=== PATIENT | female | born 1980 | race Two or more races ===

== ENCOUNTER → 2017-01-26 | Outpatient (CLI) | payer MEDICAID ==
[~2017-01-26] MED LIST: LIDOCAINE 1% 30 ML SDV ONE; NA BICARBONATE 50 MEQ/50 ML VIAL ONE
== END ==
LOC: FIMAGING 08:21
PROVIDERS: ATTEND Neurological Surgery
PROC: 009U3ZX Drainage of Spinal Canal, Percutaneous Approach, Diagnostic (ICD-10-PCS; principal; 2017-01-26)
DX: G93.2 Benign intracranial hypertension (principal)

== ENCOUNTER 2017-02-01 17:26 | Emergency (ER) | payer MEDICAID ==
--- NOTE | 2017-02-01 17:48 | EDPHY ---
H & P Time Seen by Provider: 02/01/17 17:35 HPI/ROS: Chief complaint. Leg and back pain HPI. 36-year-old female with history of pseudotumor cerebri is being evaluated for a LEASE EXAMINER shunt. She had an MRI of her brain without and with contrast on February 05. 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 It was consistent with increased intracranial pressure but no mass. 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 However the spine itself was widely patent. No cord compression. The patient had a lumbar puncture on January 26 showing increasing intracranial pressure with an opening pressure of 31. 38 mL of CSF were drained and down to a pressure of 8.5. Since then she has had continued low back pain. She notes bed rest for 1 week. When she tries to move she has shooting pain down both legs right worse than left. She has weakness in her legs and hard to stand. No bowel or bladder symptoms. She occasionally has burning in her neck. She has a headache that began today which she says is typical for increased pressure headache however then she also notes that somewhat worse on standing today. No fever. Follow-up appointment with Neurosurgery on February 25 ROS Constitutional. no fever/chills, no weakness Eyes. no problems with vision ENT. no sore throat, no nasal drainage Cardiovascular. no chest pain Respiratory. no shortness of breath, no cough Abdominal. no abdominal pain, no nausea/vomiting, no diarrhea . no problems urinating MS. no calf pain/swelling, no neck/back pain, no joint pain Skin. no rash Lymph. no swollen glands Neuro. Headache. Low back pain with pain radiating down her legs and leg weakness Past Medical/Surgical History: Past medical history polycystic ovarian syndrome, pseudotumor cerebri, lupus Social History: , daily smoker, no alcohol Smoking Status: Heavy smoker Physical Exam: General Appearance: Alert well-developed female mild distress vital signs are stable Eyes: Pupils equal and round no pallor or injection. No papilledema ENT, Mouth: Mucous membranes are moist. Respiratory: There are no retractions, lungs are clear to auscultation. Cardiovascular: Regular rate and rhythm. Gastrointestinal: Abdomen is soft and nontender, no masses, bowel sounds normal. Neurological: Awake and alert, sensory and motor exams grossly normal. Straight leg raising positive at 20 degrees for pain to her low back. Strength is normal. Reflexes symmetrical Skin: Warm and dry, no rashes. Musculoskeletal: Neck is supple nontender. Extremities symmetrical, full range of motion. Psychiatric: Patient is oriented X 3, there is no agitation. Constitutional: Initial Vital Signs Temperature (C) 36.9 C 02/01/17 17:30 Heart Rate 90 02/01/17 17:30 Respiratory Rate 18 02/01/17 17:30 Blood Pressure 148/91 H 02/01/17 17:30 O2 Sat (%) 95 02/01/17 17:30 O2 Delivery Mode Room Air Allergies/Adverse Reactions: No Known Allergies Allergy (Unverified 04/13/12 13:05) Home Medications: Medication Instructions Recorded Furosemide 40 mg PO DAILY 01/22/17 Gabapentin 800 mg 800 mg PO TID 01/22/17 Losartan Potassium 25 mg PO DAILY 01/22/17 Methazolamide 50 mg PO 01/22/17 Oxycodone HCl 10 mg PO TID 01/22/17 VITAMIN D 1,000 unit PO DAILY 01/22/17 Venlafaxine 37.5MG (*) 37.5 mg PO 01/22/17 Zofran 4 mg PO PRN 01/22/17 Medical Decision Making - Diagnostics Imaging: Lumbar spine MRI shows herniated disc to the left at L3-4. No evidence for cauda equina syndrome. Procedures: IV normal saline. Morphine for pain. Zofran for nausea ED Course/Re-evaluation: Re-evaluation 9:10 p.m.--patient is stable. The patient and I discussed MRI results, laboratory evaluation. There is no evidence for abscess post lumbar puncture. I considered spinal stenosis and cauda equina syndrome. She does have a stable HNP at the L3-4 area. We discussed treatment plan including criteria for return importance of follow-up and further evaluation. She is comfortable being discharged and expresses understanding and agreement Differential Diagnosis: Low back pain post lumbar puncture. She also has headache however the headache did not begin for 5 or 6 days post lumbar puncture. I really do not think that this is spinal headache though I considered this. She has had previous abscess or spine infection following lumbar puncture. No evidence for abscess. No evidence for meningitis. I suspect this may be muscular. - Data Points Laboratory Results: Laboratory Results 02/01/17 18:20 02/01/17 18:20 Medications Given: Discontinued Medications Diazepam (Valium Injection) 2.5 mg IVP EDNOW ONE Stop: 02/01/17 18:40 Last Admin: 02/01/17 19:39 Dose: 2.5 mg Sodium Chloride (Ns) 1,000 mls @ 0 mls/hr IV ONCE ONE PRN Reason: Wide Open Stop: 02/01/17 18:05 Last Admin: 02/01/17 18:37 Dose: 1,000 mls Morphine Sulfate (Morphine) 6 mg IVP EDNOW ONE Stop: 02/01/17 18:05 Last Admin: 02/01/17 18:37 Dose: 6 mg Ondansetron HCl (Zofran) 4 mg IVP EDNOW ONE Stop: 02/01/17 18:05 Last Admin: 02/01/17 18:38 Dose: 4 mg Departure - Departure Disposition: Home, Routine, Self-Care Clinical Impression: Back pain Condition: Good Instructions: Lumbar Radiculopathy (ED) Additional Instructions: Continue regular medications. Return for worsening leg weakness bowel or bladder symptoms. Call Dr. Miles office tomorrow to see if you get an earlier appointment. Referrals: Cyndi Earl MD [Primary Care Provider] - As per Instructions Gerard Solares MD [Medical Doctor] - As per Instructions
[2017-02-01] MEDS ORDERED: NS 1,000 ML IV ONE (18:04)
[2017-02-01] MEDS ORDERED: ONDANSETRON 4 MG/2 ML VIAL IVP ONE (18:04)
[2017-02-01 18:27] LABS: % IMMATURE GRANULYOCYTES 0.8 % (0.0-1.1); ABSOLUTE IMMATURE GRANULOCYTES 0.09 10^3/uL (0.00-0.10); ADD DIFF? NO; ADD MORPH? NO; ADD SCAN? NO; ATYPICAL LYMPHOCYTE FLAG 0 (0-99); FRAGMENT RBC FLAG 0 (0-99); HEMATOCRIT 45.2 % (38.0-47.0); HEMOGLOBIN 14.5 g/dL (12.6-16.3); LEFT SHIFT FLG 0 (0-99); LIPEMIA HEMOLYSIS FLAG 80 (0-99); MEAN CELL HEMOGLOBIN 29.4 pg (27.9-34.1); MEAN CELL HEMOGLOBIN CONCENTR. 32.1 g/dL (32.4-36.7); MEAN CELL VOLUME 91.7 fL (81.5-99.8); MEAN PLATELET VOLUME 9.6 fL (8.7-11.7); PLATELET CLUMPS FLAG 0 (0-99); PLATELET COUNT 346 10^3/uL (150-400); RED BLOOD CELL COUNT 4.93 10^6/uL (4.18-5.33); RED CELL DISTRIBUTION WIDTH 12.9 % (11.5-15.2)
[2017-02-01] MEDS ORDERED: DIAZEPAM 10 MG/2 ML SYR IVP ONE (18:39)
[2017-02-01 18:51] LABS: ANION GAP 9 mEq/L (8-16); CALCIUM 9.5 mg/dL (8.5-10.4); CARBON DIOXIDE 22 mEq/l (22-31); CHLORIDE 110 mEq/L (97-110); CREATININE 1.2 mg/dL (0.6-1.0); GLOMERULAR FILTRATION RATE 51; GLUCOSE 90 mg/dL (70-100); POTASSIUM 4.3 mEq/L (3.5-5.2); SODIUM 141 mEq/L (134-144)
[2017-02-01] MEDS ORDERED: GADOBUTROL 10 ML VIAL IVP ONE (19:52)
[2017-02-01 20:32] VITALS: RESP 18; O2SAT 95
[2017-02-01 21:27] VITALS: BP 112/86; PULSE 88; TEMP 98.6
== END 2017-02-01 21:27 | disposition home or self-care (01) ==
DX: M54.5 Low back pain (principal); F17.200 Nicotine dependence, unspecified, uncomplicated
CPT/HCPCS: 96374; A9585; J2405

== ENCOUNTER 2018-02-18 11:58 | Day surgery (SDC) | payer MEDICAID ==
[2018-02-18] MEDS ORDERED: LR 1,000 ML IV ONE ×3 (12:15→15:30)
--- NOTE | 2018-02-18 12:48 | PDANEPAE ---
ANE History of Present Illness here for EUS EGD ANE Past Medical History - Cardiovascular History Hx Hypertension: Yes Hx Arrhythmias: No Hx Chest Pain: No Hx Coronary Artery / Peripheral Vascular Disease: No Hx CHF / Valvular Disease: No Hx Palpitations: No - Pulmonary History Hx COPD: No Hx Asthma/Reactive Airway Disease: No Hx Recent Upper Respiratory Infection: No Hx Oxygen in Use at Home: No Hx Sleep Apnea: No Sleep Apnea Screening Result - Last Documented: Negative - Neurologic History Hx Cerebrovascular Accident: No Hx Seizures: No Hx Dementia: No - Endocrine History Hx Diabetes: Yes Obesity: moderate Endocrine History Comment: NIDDM - Renal History Hx Renal Disorders: Yes Renal History Comment: GLOMERIAL NEPHRITIS - Liver History Hx Hepatic Disorders: No - Neurological & Psychiatric Hx Hx Neurological and Psychiatric Disorders: Yes Neurological / Psychiatric History Comment: LUPUS. 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/17 RAMIRO SAHNI Review of Systems Review of Systems: - Exercise capacity METS (RN): 4 METS ANE Patient History - Allergies Allergies/Adverse Reactions: metoclopramide Allergy (Severe, Verified 02/15/18 14:19) Other-Enter Comments - Home Medications Home Medications: Furosemide 01/22/17 [Last Taken 02/17/18] Gabapentin 800 mg 01/22/17 [Last Taken 02/17/18] Losartan Potassium 01/22/17 [Last Taken 02/17/18] Oxycodone HCl 01/22/17 [Last Taken 02/18/18] VITAMIN D 01/22/17 [Last Taken 02/18/18] Venlafaxine 37.5MG (*) 01/22/17 [Last Taken 02/18/18] Benadryl 02/15/18 [Last Taken 02/17/18] Botox 02/15/18 [Last Taken 01/28/18] Metformin HCl 02/15/18 [Last Taken 02/17/18] - NPO status NPO Status: no food or drink >8 hours NPO Since - Liquids (Date): 02/18/18 NPO Since - Liquids (Time): 01:00 NPO Since - Solids (Date): 02/17/18 NPO Since - Solids (Time): 20:30 - Anes Hx Anes Hx: no prior problems - Smoking Hx Smoking Status: Heavy smoker (20 pack years) - Alcohol Use Alcohol Use: None - Family Anes Hx Family Anes Hx: none Family Hx Anesthesia Complications: NONE ANE Labs/Vital Signs - Vital Signs Blood Pressure: 112/81 Heart Rate: 86 Respiratory Rate: 16 O2 Sat (%): 95 Height: 170.18 cm Weight: 122.47 kg ANE Physical Exam - Airway Neck exam: FROM Mallampati Score: Class 2 Mouth exam: normal dental/mouth exam - Pulmonary Pulmonary: no respiratory distress, clear to auscultation - Cardiovascular Cardiovascular: regular rate and rhythym, no murmur, rub, or gallop - ASA Status ASA Status: III ANE Anesthesia Plan Anesthesia Plan: general endotracheal anesthesia, GA with mask
[2018-02-18] MEDS ORDERED: PROPOFOL/EMULSION 500 MG/50 ML BOTTLE IV ONE ×3 (12:52→14:10)
--- NOTE | 2018-02-18 13:37 | PDGENHP ---
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 PSurgHx: CCY Relevant Physical Exam: HEENT: anicteric sclera. CV: RRR +s1s2. Lungs: CTAB. Abd: soft, nt, + bs Cardiorespiratory Assessment: ASA 3
[2018-02-18] MEDS ORDERED: INDOMETHACIN 50 MG SUPP PR PRN (13:52)
[2018-02-18] MEDS ORDERED: NS 500 ML IV SCH (14:00)
--- NOTE | 2018-02-18 14:33 | GIREPORT ---
[facility] Surgical Services - Endoscopy Department Patient Name: Umm Arias Procedure Date: 02/18/2018 12:54 PM Patient Type: Outpatient Attending MD/ ER Physician: Byron Zuniga MD Procedure: Upper EUS Indications: Elevated liver enzymes, Abdominal pain in the right upper quadrant Patient Profile: 37 year old female with a history of increased LFTs, cholecystectomy presents for evaluation of RUQ abdominal pain. Providers: Byron Zuniga MD Medicines: Monitored Anesthesia Care Complications: No immediate complications. Estimated blood loss: Minimal. Description of Procedure: After obtaining informed consent, the endoscope was passed under direct vision. Throughout the procedure, the patient's blood pressure, pulse, and oxygen saturations were monitored continuously. The Endosonoscope was introduced through the mouth, and advanced to the second part of duoden um. The Endoscope was introduced through the mouth, and advanced to the sec ond part of duodenum. The upper EUS was accomplished without difficulty. Th e esophagus, stomach, and duodenum were visualized endosonographically. T he patient tolerated the procedure well. Findings: Endoscopic Finding : The examined esophagus was normal. A medium-sized hiatal hernia was present. Patchy mildly erythematous mucosa was found in the gastric body and in the gastric antrum. Biopsies were taken with a cold forceps for histology. The examined duodenum was normal. Endosonographic Finding : The pancreatic duct had a prominently branched endosonographic appearan ce and had hyperechoic anderson in the entire pancreas. Pancreatic parenchymal abnormalities were noted in the entire pancreas. These consisted of hyperechoic foci. Mild lobulations were also noted i n the head. There was no sign of significant endosonographic abnormality in the com mon bile duct. The maximum diameter of the duct was 3 mm. No stones, no magdiel iary sludge and ducts of normal caliber were identified. There was no sign of significant endosonographic abnormality in the visualized portion of the liver. No masses were identified. One enlarged lymph node (versus other) was visualized in the luis hepa tis region. It measured 15 mm by 15 mm in maximal cross-sectional diameter. The node was irregular, isoechoic and had well defined margins. Fine needle aspiration for cytology was performed. Color Doppler imaging was utiliz ed prior to needle puncture to confirm a lack of significant vascular structures within the needle path. Two passes were made with the 25 gau ge needle using a transduodenal approach. A stylet was used. A shot coat tender was present and performed a preliminary cytologic examination. The cellular ity of the specimen was adequate. Final cytology results are pending. No suspicious peripancreatic or perigastric lymph nodes were appreciated. Estimated Blood Loss: Estimated blood loss was minimal. Post Op Diagnosis: - Normal esophagus. - Medium-sized hiatal hernia. - Erythematous mucosa in the gastric body and antrum. Biopsied. - Normal examined duodenum. - The pancreatic duct had a prominently branched endosonographic appear ance and had hyperechoic anderson in the entire pancreas. - Pancreatic parenchymal abnormalities consisting of hyperechoic foci w ere noted in the entire pancreas. - There was no sign of significant pathology in the common bile duct. - There was no evidence of significant pathology in the visualized port ion of the liver. - One enlarged periportal lymph node was visualized. Fine needle aspira tion performed. - Etiology? No obvious cause of symptoms seen. Will await biopsy result s. Recommendation: - Discharge patient to home (with escort). - Await cytology results and await path results. - Follow up in office in 6 weeks. - Thank you for allowing me to participate in the care of your patient. Attending Participation: I personally performed the entire procedure. Byron Zuniga MD Byron Zuniga MD 02/18/2018 2:32:39 PM This report has been signed electronicallyRampooja Zuniga MD Number of Addenda: 0 Note Initiated On: 02/18/2018 12:54 PM [email or web address]
[2018-02-18] MEDS ORDERED: ACETAMINOPHEN 500 MG TAB PO PRN (14:38)
[2018-02-18] MEDS ORDERED: NALOXONE HCL 0.4 MG/ML INJ IVP PRN (14:38)
--- NOTE | 2018-02-18 14:40 | POSTANESTH ---
Post Anesthetic Evaluation Cardiovascular Status: Normal, Stable, Similar to Pre-Op Cond, Tx Hyper/Hypo- tension Respiratory Status: Normal, Stable, Similar to Pre-op Cond. Level of Consciousness/Mental Status: Can Participate in Eval, Alert and Oriented Pain Control: Adequate, Prn Tx Ordered Nausea/Vomiting Control: Adequate, Prn Tx Ordered Complications Possibly Related to Anesthesia: None Noted
[2018-02-18 15:49] VITALS: BP 129/79
== END 2018-02-18 15:52 | disposition home or self-care (01) ==
LOC: FSGY 11:58
PROVIDERS: ATTEND Internal Medicine Gastroenterology
PROC: 0DB98ZX Excision of Duodenum, Via Natural or Artificial Opening Endoscopic, Diagnostic (ICD-10-PCS; principal; 2018-02-18 13:30)
PROC: 07B Lymphatic and Hemic Systems, Excision (ICD-10-PCS; principal; 2018-02-18 13:30)
PROC: 0DB68ZX Excision of Stomach, Via Natural or Artificial Opening Endoscopic, Diagnostic (ICD-10-PCS; principal; 2018-02-18 13:30)
DX: K44.9 Diaphragmatic hernia without obstruction or gangrene (principal); R10.11 Right upper quadrant pain; G93.2 Benign intracranial hypertension; G43.719 Chronic migraine without aura, intractable, without status migrainosus; J45.909 Unspecified asthma, uncomplicated; F32.9 Major depressive disorder, single episode, unspecified; M79.7 Fibromyalgia; K21.9 Gastro-esophageal reflux disease without esophagitis; E78.5 Hyperlipidemia, unspecified; I10 Essential (primary) hypertension
CPT/HCPCS: 88184-90; 88185-91; J2704